=== PATIENT | male | born 1965 | race Two or more races ===

== ENCOUNTER 2017-05-27 10:00 | Emergency (ER) | payer MEDICAID, OTHER ==
[~2017-05-27] VITALS: Ht 180.3 cm; Wt 95.3 kg
[2017-05-27 10:15] VITALS: BP 167/80
== END 2017-05-27 12:16 | disposition home or self-care (01) ==
LOC: ER 10:00
DX: G24.3 Spasmodic torticollis (principal)
CPT/HCPCS: 72040

== ENCOUNTER 2019-01-26 13:30 | Emergency (ER) | payer MEDICAID ==
[~2019-01-26] VITALS: Ht 180.3 cm; Wt 90.7 kg
[2019-01-26] MEDS ORDERED: SODIUM CHLORIDE 0.9% 1,000 ML IV ONE (13:52)
[2019-01-26 14:12] LABS: Basophils # (auto) 0.1 uL; Basophils % (auto) 0.6 % (0.0-2.0); Eosinophils # (auto) 0 uL; Hematocrit 49.5 % (41.0-53.0); Hemoglobin 16.9 g/dL (13.5-17.5); Lymphocytes # (auto) 2.5 uL; Lymphocytes % (auto) 15.6 % (10.0-50.0); Mean Corpuscular Hemoglobin 30.5 pg (28.0-32.0); Mean Corpuscular Hgb Conc. 34.1 g/dL (32.0-36.0); Mean Corpuscular Volume 89.4 fL (80.0-100.0); Monocytes # (auto) 0.5 uL; Neutrophils # (auto) 12.8 uL; Neutrophils % (auto) 80.8 % (37.0-80.0); Platelet Count (auto) 230 10^3/uL (140-450); Red Blood Cells 5.54 10^6/uL (4.5-5.90); Red Cell Distribution Width 13.3 % (11.8-14.3); White Blood Cell 15.8 10^3/uL (4.4-10.8)
[2019-01-26 14:34] LABS: Albumin 4.3 g/dL (3.4-5.0); Calcium 8.2 mg/dL (8.5-10.1); Potassium 3.7 mmol/L (3.5-5.1)
[2019-01-26 14:37] LABS: BUN/Creatinine Ratio 14.4; Bilirubin, Total 0.5 mg/dL (0.2-1.0); Total Protein 8.4 g/dL (6.4-8.2)
[2019-01-26 17:25] VITALS: BP 109/70
== END 2019-01-26 17:49 | disposition home or self-care (01) ==
LOC: ER 13:52
DX: F10.129 Alcohol abuse with intoxication, unspecified (principal); R07.2 Precordial pain; F17.210 Nicotine dependence, cigarettes, uncomplicated; E78.00 Pure hypercholesterolemia, unspecified; Y90.8 Blood alcohol level of 240 mg/100 ml or more
CPT/HCPCS: 36415; 70450; 80053; 80320; 85025; 93005; 94761

== ENCOUNTER 2022-12-08 03:02 | Emergency (ER) | payer MEDICAID ==
[~2022-12-08] VITALS: Ht 177.8 cm; Wt 81.0 kg
[2022-12-08 03:25] VITALS: BP 128/85; PULSE 83; RESP 16; O2SAT 97
[2022-12-08] MEDS ORDERED: DexAMETHasone SOD PHOS 10MG/1ML VIAL INJ IM ONE (03:30)
[2022-12-08] MEDS ORDERED: HYDROcodone-ACET 5/325MG TAB PO ONE (03:30)
[2022-12-08] MEDS ORDERED: KETOROLAC TROMETH 60MG/2ML VIAL IM ONE (03:30)
[2022-12-08] MEDS ORDERED: IBUP1TAB5 PO (03:32)
[2022-12-08] MEDS ORDERED: HYDR-4902 PO (03:32)
== END 2022-12-08 03:57 | disposition home or self-care (01) ==
LOC: ER 03:02
DX: M25.462 Effusion, left knee (principal); G89.29 Other chronic pain; F17.210 Nicotine dependence, cigarettes, uncomplicated; F14.10 Cocaine abuse, uncomplicated; E78.5 Hyperlipidemia, unspecified; Z59.00 Homelessness unspecified
CPT/HCPCS: 29505; 96372; 99284; J1100; J1885